=== PATIENT | female | born 1980 | race African-American/Black ===

== ENCOUNTER 2016-09-26 14:04 | Emergency (ER) | payer MEDICAID ==
[~2016-09-26] VITALS: Ht 172.7 cm; Wt 104.3 kg
[2016-09-26 14:30] VITALS: BP 160/94
== END 2016-09-26 15:41 | disposition home or self-care (01) ==
LOC: ER 14:04
DX: H66.91 Otitis media, unspecified, right ear (principal); J03.90 Acute tonsillitis, unspecified; N39.0 Urinary tract infection, site not specified; I10 Essential (primary) hypertension; G43.909 Migraine, unspecified, not intractable, without status migrainosus; Z88.6 Allergy status to analgesic agent